=== PATIENT | male | born 1955 | race Caucasian/White ===

== ENCOUNTER 2023-04-02 03:58 | Inpatient (IN) | payer BC, MEDICARE ==
[~2023-04-02] VITALS: Ht 185.4 cm; Wt 85.6 kg
[2023-04-02] MEDS ORDERED: SODIUM CHLORIDE 0.9% 1,000 ML IV ONE ×2 (04:30→10:00)
[2023-04-02 05:01] LABS: Eosinophils # (auto) 0 10 ^3/uL (0-0.8); Lymphocytes # (auto) 0.5 10 ^3/uL (0.4-5.4); Mean Corpuscular Volume 96.5 fL (80.0-100.0); Red Cell Distribution Width 14.1 % (11.8-14.3)
[2023-04-02 05:02] LABS: Basophils # (auto) 0.1 10 ^3/uL (0-0.2); Basophils % (auto) 0.2 % (0.0-2.0); Hemoglobin 17.3 g/dL (13.5-17.5); Lymphocytes % (auto) 2.2 % (10.0-50.0); Mean Corpuscular Hemoglobin 29.1 pg (28.0-32.0); Mean Corpuscular Hgb Conc. 30.1 g/dL (32.0-36.0); Monocytes # (auto) 1.9 10 ^3/uL (0-1.3); Monocytes % (auto) 7.9 % (0.0-12.0); Neutrophils # (auto) 21.9 10 ^3/uL (1.6-8.6); Neutrophils % (auto) 89.7 % (37.0-80.0); Nucleated Red Blood Cells % 0.1 %; Red Blood Cells 5.96 10^6/uL (4.5-5.90); White Blood Cell 24.4 10^3/uL (4.4-10.8)
[2023-04-02 05:03] LABS: Hematocrit 57.5 % (41.0-53.0)
[2023-04-02 05:12] LABS: Albumin 4.2 g/dL (3.4-5.0); Magnesium 3.2 mg/dL (1.6-2.6)
[2023-04-02 05:14] LABS: Phosphorus 3.1 mg/dL (2.5-4.90); Total Protein 8.6 g/dL (6.4-8.2)
[2023-04-02 05:15] LABS: INR 1.02 (0.9-1.15)
[2023-04-02 05:18] LABS: Lactic Acid w/Reflex 3.7 mmol/L (0.4-2.0)
[2023-04-02 05:21] LABS: Bilirubin, Total 0.5 mg/dL (0.2-1.0)
[2023-04-02 05:30] LABS: BUN/Creatinine Ratio 25.4 (10.0-20.0); Potassium 7.4 mmol/L (3.5-5.1)
[2023-04-02] MEDS: SODIUM CHLORIDE 0.9% 1,000 ML IV SCH ×2 (05:45→08:30)
[2023-04-02] MEDS: ALBUTEROL SULF 2.5 MG/0.5ML(0.5%) NEB SOLN NEB ONE ×2 (05:45→07:15)
[2023-04-02] MEDS ORDERED: INSULIN LANTUS (GLARGINE) 1 /0.01ml (100units/ml) SC ONE (05:45)
[2023-04-02] MEDS ORDERED: VANCOMYCIN PER PHARMACY 0 MG IV SCH (05:45)
[2023-04-02] MEDS ORDERED: SODIUM BICARBONATE 8.4 % INJ 50ML VIAL IV ONE ×4 (05:45→15:30)
[2023-04-02] MEDS ORDERED: SODIUM CHLORIDE 0.9% 3,300 ML IV ONE (05:45)
[2023-04-02] MEDS ORDERED: DEXTROSE (50%) 50ML SYRG IV PRN ×4 (05:45→18:15)
[2023-04-02] MEDS ORDERED: FUROSEMIDE 40 MG/4 ML VIAL IV ONE (05:45)
[2023-04-02] MEDS ORDERED: InsuLIN R (HUMAN) 100 UNITS in SODIUM CHL 0.9% 99 ML IV SCH ×4 (05:45→18:15)
[2023-04-02] MEDS ORDERED: CEFEPIME 1GM/ 50ML 50 ML IV ONE (05:45)
[2023-04-02] MEDS ORDERED: DEXTROSE 10% 0 ML IV ONE (05:48)
[2023-04-02] MEDS: ACCU-CHEK COMFORT CURVE STRIP VI SCH ×10 (06:00→22:29)
[2023-04-02] MEDS ORDERED: InsuLIN REG 1unit/0.01ml Soln (100units/ml) ONE (06:19)
[2023-04-02] MEDS ORDERED: ONDANSETRON HCL 4 MG/2 ML VIAL IV PRN (06:30)
[2023-04-02] MEDS ORDERED: ACETAMINOPHEN 650 MG RECT SUPP PR PRN (06:30)
[2023-04-02] MEDS: CALCIUM GLUC 1,000mg/50ml-NS 50 ML IV SCH ×3 (06:32→08:03)
[2023-04-02] MEDS: VANCOMYCIN 1GM/250ML 250 ML IV SCH ×2 (06:38→07:47)
[2023-04-02] MEDS ORDERED: MORPHINE SULFATE INJ 2 MG/ml SYRG IV PRN (07:00)
[2023-04-02] MEDS ORDERED: NITROGLYCERIN 0.4 MG SL TAB SL PRN (07:00)
[2023-04-02 07:36] LABS: Urine Bacteria FEW /hpf (None Seen); Urine Blood TRACE /uL (Negative); Urine Specific Gravity 1.026 (1.001-1.035); Urine WBC 5 /hpf (0 - 3)
[2023-04-02 07:41] LABS: Alcohol, Urine < 3.0 mg/dL (0-10); Amphetamine Screen, Urine NEGATIVE (NEGATIVE); Barbiturate Scree,Urine NEGATIVE (NEGATIVE); Benzodiazephine Screen, Urine NEGATIVE (NEGATIVE); Cannabinoid Screen, Urine NEGATIVE (NEGATIVE); Cocaine Screen, Urine NEGATIVE (NEGATIVE); Opiate Scree,Urine NEGATIVE (NEGATIVE); Phencyclidine Screen, Urine NEGATIVE (NEGATIVE)
[2023-04-02 08:41] LABS: Albumin 4.2 g/dL (3.4-5.0); Calcium 10.1 mg/dL (8.5-10.1); Potassium 4.9 mmol/L (3.5-5.1)
[2023-04-02 08:50] LABS: BUN/Creatinine Ratio 28.1 (10.0-20.0); Bilirubin, Total 0.4 mg/dL (0.2-1.0); Total Protein 8.2 g/dL (6.4-8.2)
[2023-04-02] MEDS ORDERED: SODIUM CHLORIDE 0.9% 1,000 ML IV SCH ×3 (09:45→11:45)
[2023-04-02] MEDS ORDERED: SODIUM CHLORIDE 0.9% 500 ML IV ONE (10:00)
[2023-04-02] MEDS: cefTRIAXone 1GM/50ML D5W 50 ML IV SCH (10:24)
[2023-04-02] MEDS: HEPARIN SODIUM (PORCINE) 5000 UNITS/ML 1ML VIAL SC SCH ×2 (10:24→22:24)
[2023-04-02] MEDS: FAMOTIDINE (10MG/ML) 2ML VL IV SCH (10:24)
[2023-04-02] MEDS ORDERED: ACCU-CHEK COMFORT CURVE STRIP VI SCH (10:30)
[2023-04-02 11:39] LABS: Potassium 4.2 mmol/L (3.5-5.1)
[2023-04-02] MEDS: SODIUM CHLOR 0.9% PF (SALINE LOCK) 10ML VIAL/SYR IV SCH ×2 (14:10→22:25)
[2023-04-02] MEDS ORDERED: SOD CHL 0.45% 1,000 ML IV SCH ×2 (14:15→14:30)
[2023-04-02 18:40] LABS: Albumin 3.7 g/dL (3.4-5.0); Calcium 10.1 mg/dL (8.5-10.1); Potassium 3.8 mmol/L (3.5-5.1)
[2023-04-02 18:45] LABS: BUN/Creatinine Ratio 36.7 (10.0-20.0); Bilirubin, Total 0.4 mg/dL (0.2-1.0); Total Protein 6.6 g/dL (6.4-8.2)
[2023-04-02] MEDS ORDERED: HALOPERIDOL LACTATE 5 MG/ML INJ VIAL IM PRN (19:45)
[2023-04-02] MEDS: D5W 5% 1,000 ML IV SCH (19:51)
[2023-04-03 00:10] LABS: BUN/Creatinine Ratio 31.5 (10.0-20.0); Calcium 9.4 mg/dL (8.5-10.1); Potassium 4.2 mmol/L (3.5-5.1)
[2023-04-03] MEDS: ACCU-CHEK COMFORT CURVE STRIP VI SCH ×11 (01:41→21:35)
[2023-04-03 05:19] LABS: BUN/Creatinine Ratio 30.1 (10.0-20.0); Calcium 9.4 mg/dL (8.5-10.1); Magnesium 2.4 mg/dL (1.6-2.6); Potassium 3.9 mmol/L (3.5-5.1)
[2023-04-03 05:21] LABS: Basophils # (auto) 0.1 10 ^3/uL (0-0.2); Basophils % (auto) 0.3 % (0.0-2.0); Eosinophils # (auto) 0 10 ^3/uL (0-0.8); Eosinophils % (auto) 0.1 % (0.0-7.0); Lymphocytes # (auto) 2.8 10 ^3/uL (0.4-5.4); Lymphocytes % (auto) 13.8 % (10.0-50.0); Mean Corpuscular Hemoglobin 30.9 pg (28.0-32.0); Mean Corpuscular Hgb Conc. 36.4 g/dL (32.0-36.0); Mean Corpuscular Volume 84.8 fL (80.0-100.0); Monocytes # (auto) 1.9 10 ^3/uL (0-1.3); Monocytes % (auto) 9.6 % (0.0-12.0); Neutrophils # (auto) 15.2 10 ^3/uL (1.6-8.6); Neutrophils % (auto) 76.2 % (37.0-80.0); Nucleated Red Blood Cells % 0.1 %; Red Blood Cells 5.18 10^6/uL (4.5-5.90); Red Cell Distribution Width 13.7 % (11.8-14.3); White Blood Cell 19.9 10^3/uL (4.4-10.8)
[2023-04-03 05:22] LABS: Bilirubin, Total 0.5 mg/dL (0.2-1.0); Total Protein 6.6 g/dL (6.4-8.2)
[2023-04-03] MEDS ORDERED: HYDROcodone-ACET 5/325MG TAB PO PRN (05:30)
[2023-04-03] MEDS: D5W 5% 1,000 ML IV SCH (05:45)
[2023-04-03] MEDS: SODIUM CHLOR 0.9% PF (SALINE LOCK) 10ML VIAL/SYR IV SCH ×3 (05:48→21:52)
[2023-04-03] MEDS: VANCOMYCIN 1GM/250ML 250 ML IV SCH (07:05)
[2023-04-03] MEDS: cefTRIAXone 1GM/50ML D5W 50 ML IV SCH (09:55)
[2023-04-03] MEDS: FAMOTIDINE (10MG/ML) 2ML VL IV SCH (10:59)
[2023-04-03] MEDS: SOD CHL 0.45% 1,000 ML IV SCH ×2 (10:59→22:07)
[2023-04-03] MEDS: HEPARIN SODIUM (PORCINE) 5000 UNITS/ML 1ML VIAL SC SCH ×2 (11:09→21:35)
[2023-04-03] MEDS: INSULIN LANTUS (GLARGINE) 1 /0.01ml (100units/ml) SC SCH (11:09)
[2023-04-03] MEDS ORDERED: DEXTROSE (50%) 50ML SYRG IV PRN (12:45)
[2023-04-03] MEDS: InsuLIN REG 1unit/0.01ml Soln (100units/ml) SC SCH ×2 (16:32→21:57)
[2023-04-03 22:00] VITALS: BP 146/85
[2023-04-03 22:15] VITALS: BP 136/82
[2023-04-04] MEDS ORDERED: METF-370 PO (00:40)
[2023-04-04 05:00] VITALS: BP 151/83
[2023-04-04] MEDS: SOD CHL 0.45% 1,000 ML IV SCH ×3 (05:45→23:39)
[2023-04-04] MEDS: SODIUM CHLOR 0.9% PF (SALINE LOCK) 10ML VIAL/SYR IV SCH ×3 (06:01→21:22)
[2023-04-04] MEDS: ACCU-CHEK COMFORT CURVE STRIP VI SCH ×4 (06:20→21:18)
[2023-04-04] MEDS: VANCOMYCIN 1GM/250ML 250 ML IV SCH (06:20)
[2023-04-04] MEDS: InsuLIN REG 1unit/0.01ml Soln (100units/ml) SC SCH ×4 (06:22→21:20)
[2023-04-04 06:55] LABS: Basophils # (auto) 0 10 ^3/uL (0-0.2); Basophils % (auto) 0.1 % (0.0-2.0); Eosinophils # (auto) 0.2 10 ^3/uL (0-0.8); Eosinophils % (auto) 1.4 % (0.0-7.0); Hematocrit 40.8 % (41.0-53.0); Hemoglobin 14.5 g/dL (13.5-17.5); Lymphocytes # (auto) 3.3 10 ^3/uL (0.4-5.4); Lymphocytes % (auto) 29.2 % (10.0-50.0); Mean Corpuscular Hemoglobin 29.2 pg (28.0-32.0); Mean Corpuscular Hgb Conc. 35.7 g/dL (32.0-36.0); Mean Corpuscular Volume 81.9 fL (80.0-100.0); Monocytes # (auto) 0.9 10 ^3/uL (0-1.3); Monocytes % (auto) 7.8 % (0.0-12.0); Neutrophils % (auto) 61.5 % (37.0-80.0); Nucleated Red Blood Cells % 0.1 %; Red Blood Cells 4.98 10^6/uL (4.5-5.90); Red Cell Distribution Width 13.9 % (11.8-14.3); White Blood Cell 11.4 10^3/uL (4.4-10.8)
[2023-04-04 07:17] LABS: BUN/Creatinine Ratio 30.2 (10.0-20.0); Calcium 8.3 mg/dL (8.5-10.1); Magnesium 2.3 mg/dL (1.6-2.6); Potassium 4.1 mmol/L (3.5-5.1)
[2023-04-04 09:00] VITALS: BP 142/77
[2023-04-04] MEDS: cefTRIAXone 1GM/50ML D5W 50 ML IV SCH (09:35)
[2023-04-04] MEDS: HEPARIN SODIUM (PORCINE) 5000 UNITS/ML 1ML VIAL SC SCH ×2 (09:44→21:22)
[2023-04-04] MEDS: FAMOTIDINE (10MG/ML) 2ML VL IV SCH (09:48)
[2023-04-04] MEDS: INSULIN LANTUS (GLARGINE) 1 /0.01ml (100units/ml) SC SCH (10:00)
[2023-04-04] MEDS ORDERED: metFORMIN HYDROCHLORIDE 500 MG TAB PO ONE (11:30)
[2023-04-04 13:00] VITALS: BP 147/89
[2023-04-04 17:00] VITALS: BP 142/88
[2023-04-04] MEDS: metFORMIN HYDROCHLORIDE 500 MG TAB PO SCH (17:43)
[2023-04-04] MEDS ORDERED: INSULIN LANTUS (GLARGINE) 1 /0.01ml (100units/ml) SC SCH (22:00)
[2023-04-04 23:11] VITALS: BP 158/87
[2023-04-05 05:00] VITALS: BP 147/85
[2023-04-05] MEDS: SODIUM CHLOR 0.9% PF (SALINE LOCK) 10ML VIAL/SYR IV SCH ×4 (05:23→22:11)
[2023-04-05] MEDS: InsuLIN REG 1unit/0.01ml Soln (100units/ml) SC SCH ×4 (06:22→22:07)
[2023-04-05] MEDS: ACCU-CHEK COMFORT CURVE STRIP VI SCH ×4 (06:22→22:08)
[2023-04-05] MEDS: VANCOMYCIN 1GM/250ML 250 ML IV SCH (07:34)
[2023-04-05 09:00] VITALS: BP 164/95
[2023-04-05] MEDS: cefTRIAXone 1GM/50ML D5W 50 ML IV SCH (09:03)
[2023-04-05] MEDS: metFORMIN HYDROCHLORIDE 500 MG TAB PO SCH ×2 (09:04→17:27)
[2023-04-05] MEDS: HEPARIN SODIUM (PORCINE) 5000 UNITS/ML 1ML VIAL SC SCH ×2 (09:11→22:05)
[2023-04-05] MEDS: INSULIN LANTUS (GLARGINE) 1 /0.01ml (100units/ml) SC SCH ×2 (10:25→22:07)
[2023-04-05 13:00] VITALS: BP 147/88
[2023-04-05 17:00] VITALS: BP 153/88
[2023-04-05 22:00] VITALS: BP 134/80
[2023-04-06 05:00] VITALS: BP 150/91
[2023-04-06] MEDS: ACCU-CHEK COMFORT CURVE STRIP VI SCH ×4 (05:58→21:40)
[2023-04-06] MEDS: InsuLIN REG 1unit/0.01ml Soln (100units/ml) SC SCH ×4 (05:58→21:38)
[2023-04-06 06:08] LABS: Basophils # (auto) 0 10 ^3/uL (0-0.2); Basophils % (auto) 0.1 % (0.0-2.0); Eosinophils # (auto) 0.1 10 ^3/uL (0-0.8); Eosinophils % (auto) 1.4 % (0.0-7.0); Hemoglobin 15.6 g/dL (13.5-17.5); Lymphocytes % (auto) 24.2 % (10.0-50.0); Mean Corpuscular Hemoglobin 30.4 pg (28.0-32.0); Mean Corpuscular Hgb Conc. 35.6 g/dL (32.0-36.0); Mean Corpuscular Volume 85.5 fL (80.0-100.0); Monocytes # (auto) 0.6 10 ^3/uL (0-1.3); Monocytes % (auto) 7.7 % (0.0-12.0); Neutrophils # (auto) 5.5 10 ^3/uL (1.6-8.6); Neutrophils % (auto) 66.6 % (37.0-80.0); Nucleated Red Blood Cells % 0.2 %; Red Blood Cells 5.14 10^6/uL (4.5-5.90); Red Cell Distribution Width 13.2 % (11.8-14.3); White Blood Cell 8.2 10^3/uL (4.4-10.8)
[2023-04-06 06:12] LABS: BUN/Creatinine Ratio 25.6 (10.0-20.0); Calcium 9.2 mg/dL (8.5-10.1); Potassium 3.9 mmol/L (3.5-5.1)
[2023-04-06 09:00] VITALS: BP 134/93
[2023-04-06] MEDS: metFORMIN HYDROCHLORIDE 500 MG TAB PO SCH ×2 (09:20→18:02)
[2023-04-06] MEDS: HEPARIN SODIUM (PORCINE) 5000 UNITS/ML 1ML VIAL SC SCH ×2 (09:21→21:37)
[2023-04-06] MEDS: INSULIN LANTUS (GLARGINE) 1 /0.01ml (100units/ml) SC SCH ×2 (09:21→21:39)
[2023-04-06] MEDS ORDERED: LOSARTAN POTASSIUM 50 MG TAB PO ONE (11:15)
[2023-04-06 13:00] VITALS: BP 138/93
[2023-04-06] MEDS: SODIUM CHLOR 0.9% PF (SALINE LOCK) 10ML VIAL/SYR IV SCH ×2 (13:27→21:39)
[2023-04-06 16:51] VITALS: BP 116/86
[2023-04-06 22:00] VITALS: BP 117/79
[2023-04-07 05:00] VITALS: BP 116/70
[2023-04-07] MEDS: InsuLIN REG 1unit/0.01ml Soln (100units/ml) SC SCH ×2 (06:22→11:57)
[2023-04-07] MEDS: SODIUM CHLOR 0.9% PF (SALINE LOCK) 10ML VIAL/SYR IV SCH ×2 (06:22→15:10)
[2023-04-07] MEDS: ACCU-CHEK COMFORT CURVE STRIP VI SCH ×2 (06:23→11:57)
[2023-04-07 08:00] VITALS: BP 125/91
[2023-04-07] MEDS: metFORMIN HYDROCHLORIDE 500 MG TAB PO SCH (08:25)
[2023-04-07 09:00] VITALS: BP 125/91
[2023-04-07] MEDS ORDERED: LOSARTAN POTASSIUM 50 MG TAB PO SCH (10:00)
[2023-04-07] MEDS: HEPARIN SODIUM (PORCINE) 5000 UNITS/ML 1ML VIAL SC SCH (10:23)
[2023-04-07] MEDS: INSULIN LANTUS (GLARGINE) 1 /0.01ml (100units/ml) SC SCH (10:23)
[2023-04-07] MEDS ORDERED: METF-929 PO (12:01)
[2023-04-07] MEDS ORDERED: BLOO1KIT60 XX (12:01)
[2023-04-07] MEDS ORDERED: LOSA-69 PO (12:01)
[2023-04-07] MEDS ORDERED: INSLANTI SC (12:01)
[2023-04-07 13:00] VITALS: BP 126/83
[2023-04-07 16:38] VITALS: BP 122/88
== END 2023-04-07 17:40 | disposition home or self-care (01) | DRG 871 ==
LOC: EDBD 03:58 → ER 03:58 → TELE 06:58 → TELE-WESTW 04-03 21:28
PROVIDERS: ADMIT Nurse Practitioner Family; ATTEND Internal Medicine Geriatric Medicine
DX: A41.9 Sepsis, unspecified organism (principal); E11.10 Type 2 diabetes mellitus with ketoacidosis without coma; N17.0 Acute kidney failure with tubular necrosis; E87.0 Hyperosmolality and hypernatremia; R57.9 Shock, unspecified; E83.41 Hypermagnesemia; E83.42 Hypomagnesemia; E88.09 Other disorders of plasma-protein metabolism, not elsewhere classified; E87.8 Other disorders of electrolyte and fluid balance, not elsewhere classified; E87.5 Hyperkalemia; E86.0 Dehydration; I10 Essential (primary) hypertension; Z79.899 Other long term (current) drug therapy; Z20.822 Contact with and (suspected) exposure to COVID-19
CPT/HCPCS: 36415; 36600; 70450; 71045; 80048; 80053; 80202; 80307; 80329; 81001; 82010; 82140; 82550; 82805; 82947; 82962; 83036; 83605; 83690; 83735; 83880; 83930; 84100; 84484; 85025; 85610; 87040; 87426; 93005; 94640; 96361; 96365; 96366; 96367; 96375; 96376; 97110; 97116; 97163; 97530; G0378; J0696; J1815; J3490